=== PATIENT | female | born 1975 | race Caucasian/White ===

== ENCOUNTER 2019-03-10 22:06 | Emergency (ER) | payer SELFPAY ==
[~2019-03-10] VITALS: Ht 160 cm; Wt 86.2 kg
[2019-03-10 22:39] VITALS: BP_SYST 116
--- NOTE | 2019-03-10 23:05 | NUR ---
Pt ambulatory to bed 8 for evaluation
--- NOTE | 2019-03-10 23:10 | NUR ---
PT came to [facility] [place] ED for R flank pain, burning, frequency and urgency of urination for 2 days. Reports she took [place] with pain but it "only lasted a few hours." denies n/v/d or fever. No other complaints/injuries noted. Will cont. to monitor.
--- NOTE | 2019-03-10 23:14 | NUR ---
ER at bedside examining patient.
[2019-03-10 23:42] LABS: BILIRUBIN,URINE NEGATIVE (NEGATIVE); BLOOD, URINE 1+ (NEGATIVE); CLARITY/URINE CLEAR (CLEAR); COLOR,URINE YELLOW (YELLOW); GLUCOSE,URINE NEGATIVE (NEGATIVE); KETONES,URINE TRACE (NEGATIVE); LEUKOCYTE ESTERASE ,URINE NEGATIVE (NEGATIVE); NITRITE, URINE NEGATIVE (NEGATIVE); PH,URINE 5.5 (5.0-8.0); PROTEIN URINE NEGATIVE (NEGATIVE); UROBILINOGEN,URINE 0.2 (0.2-1.0)
[2019-03-10] MEDS ORDERED: KETOROLAC TROMETHAMINE 60 MG/2 ML VIAL IM ONE (23:45)
[2019-03-10] MEDS ORDERED: cefTRIAXone 1 GM VIAL IM ONE (23:45)
[2019-03-10 23:47] LABS: BACTERIA,URINE FEW /HPF (None Seen); WBC,URINE 0-3 /HPF (0-3)
[2019-03-11] MEDS ORDERED: LIDOCAINE 1%, 20 ML MDV 20 ML ONE (00:05)
[2019-03-11 00:41] VITALS: BP_SYST 116
--- NOTE | 2019-03-11 00:48 | NUR ---
Patient given written and verbal discharge instructions and verbalizes understanding. ER MD Dr. Rollins discussed with patient the results and treatment provided. Patient in stable condition. ID arm band removed. Rx of motrin and promethazine given. Patient educated on pain management and to follow up with PMD. Pain Scale 0/10. Opportunity for questions provided and answered. Medication side effect fact sheet provided.
== END 2019-03-11 00:41 | disposition home or self-care (01) ==
LOC: SED 22:06
DX: N12 Tubulo-interstitial nephritis, not specified as acute or chronic (principal)
CPT/HCPCS: 81000; 81025; 96372; 99283; J0696; J1885; J2001